=== PATIENT | female | born 1975 | race African-American/Black ===

== ENCOUNTER → 2020-06-24 | Outpatient (CLI) | payer BC ==
[~2020-06-24] MED LIST: MULTIVITAMIN PO; ZESTRIL10 MG PO
== END ==
LOC: DX 11:20 → EDSTATUS 07-19 11:30
PROVIDERS: ATTEND Internal Medicine Gastroenterology
DX: Z01.812 Encounter for preprocedural laboratory examination (principal); Z01.818 Encounter for other preprocedural examination; Z20.822 Contact with and (suspected) exposure to COVID-19; K62.5 Hemorrhage of anus and rectum
CPT/HCPCS: 93005; U0002